=== PATIENT | female | born 1970 | race Caucasian/White ===

== ENCOUNTER 2016-11-06 01:33 | Emergency (ER) | payer OTHER ==
[~2016-11-06] VITALS: Ht 167.6 cm; Wt 78.9 kg
[~2016-11-06 01:33] MED LIST: AUGMENTIN 875-1 EACH PO; AZITHROMYCIN250 M1 PO; AZITHROMYCIN500 M3 PO; BENAZEPRIL HCL20 MG PO; CITALOPRAM HBR40 MG PO; DULOXETINE HCL60 MG PO; GABAPENTIN100 M2 PO
[2016-11-06 01:49] VITALS: BP 183/80
--- NOTE | 2016-11-06 01:54 | ED NECK/BACK PAIN COMPLAINT ---
History of Present Illness General Chief Complaint: Low Back Pain/Injury Stated Complaint: " I'VE HAD BACK SPASMS ALL WEEKEND" Source: patient Exam Limitations: no limitations Vital Signs & Intake/Output Vital Signs & Intake/Output Vital Signs Date Time Temp Pulse Resp B/P Pulse O2 O2 Flow FiO2 Ox Delivery Rate 11/06 0149 98.1 72 18 183/80 100 Room Air Allergies Coded Allergies: No Known Allergies (11/06/16) Reconcile Medications Amoxicillin/Potassium Clav (Augmentin 875-125 Tablet) 1 EACH TABLET 1 TAB PO BID pneumonia Azithromycin 250 MG TABLET 1 DP PO AD FOR POSSIBLE PNEUMONIA/BRONCHI Benazepril HCl 20 MG TABLET 1 TAB PO DAILY HEART (Reported) Citalopram Hydrobromide (Citalopram HBr) 40 MG TABLET 1 TAB PO DAILY DEPRESSION (Reported) Cyclobenzaprine HCl 10 MG TABLET 1 TAB PO 4 TIMES/DAY PRN MUSCLE SPASM Duloxetine HCl 60 MG CAPSULE.DR 1 CAP PO DAILY DEPRESSION (Reported) Gabapentin 100 MG CAPSULE 1 CAP PO DAILY DEPRESSION (Reported) Hydrocortisone 2.5 % OINT...G. 1 RANJEET TOP TID PRN RASH apply to affected area(s) X 7 DAYS MAX Ibuprofen 800 MG TABLET 1 TAB PO TID PRN PAIN Triage Note: TRIAGE: PATIENT TO ER FROM HOME REPORTING BACK SPASMS FEW WEEKS, INCREASED OVER WEEKEND. PATIENT HAS BEEN TAKING ALEEVE W/O RELIEF, APPLIED OTC PATCH TO R FLANK AND REPORTS "BROKE OUT IN RASH FROM IT." PATIENT DENIES URINARY DIFFICULTIES. DENIES ANY KNOWN BACK INJURIES. Triage Nurses Notes Reviewed? yes Onset: Gradual Duration: day(s): Timing: recent history Quality/Severity: moderate Location: lumbar spine Radiation: none Context: turning/bending Method of Injury: unknown Loss of Consciousness: no loss of consciousness Associated Symptoms: muscle spasm HPI: 46 yo woman in prior good health presents with 3 days of back pain. "The muscles feel tight." She notes that she saw her chiropractor 3 days ago, "and everything was great... and now I have pain in my left back." No nausea, vomiting, diarrhea, dysuria. She is otherwise well. Past History Travel History Traveled to [place] past 21 day No Medical History Any Pertinent Medical History? 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 No Review of Systems Review of Systems Constitutional: Reports: no symptoms. Eyes: Reports: no symptoms. Ears, Nose, Throat, Mouth: Reports: no symptoms. Respiratory: Reports: no symptoms. Cardiovascular: Reports: no symptoms. Gastrointestinal/Abdominal: Reports: no symptoms. Musculoskeletal: Reports: no symptoms. Skin: Reports: no symptoms. Neurological/Psychological: Reports: no symptoms. All Other Systems: Reviewed and Negative Physical Exam Physical Exam General Appearance: well developed/nourished, mild distress Head: atraumatic Eyes: Bilateral: PERRL, EOMI. Ears, Nose, Throat, Mouth: hearing grossly normal Neck: normal inspection, supple, full range of motion, normal alignment Respiratory: normal breath sounds Cardiovascular: regular rate/rhythm Gastrointestinal: soft, non-tender Back: normal inspection, muscle spasm, no vertebral tenderness, muscle spasm in left lower lumbar region. Neurologically intact. strength and light touch intact in lower extremities. Extremities: normal range of motion Neurologic/Psych: awake, alert, oriented x 3, normal mood/affect Skin: intact, normal color, warm/dry Progress Differential Diagnosis: herniated disc, myofascial strain, sciatica Plan of Care: toradol, flexeril... advocated close follow up. Departure Departure Disposition: HOME OR SELF CARE Condition: Stable Clinical Impression Primary Impression: Back pain Referrals: NING HTOMAS,BERNADETTE Loaiza (PCP/Family) Departure Forms: Customer Survey General Discharge Information Prescriptions: Current Visit Scripts Cyclobenzaprine HCl 1 TAB PO 4 TIMES/DAY PRN MUSCLE SPASM #30 TAB Ref 1 Ibuprofen 1 TAB PO TID PRN PAIN #60 TAB Hydrocortisone 1 RANJEET TOP TID PRN RASH #30 GM apply to affected area(s) X 7 DAYS MAX
[2016-11-06] MEDS ORDERED: CYCLOBENZAPRINE10 M1 PO (01:58)
[2016-11-06] MEDS ORDERED: IBUPROFEN800 M1 PO (01:58)
[2016-11-06] MEDS ORDERED: HYDROCORTISO453.6 GM TOP (01:59)
== END 2016-11-06 02:18 ==
LOC: ERH 01:33
DX: M54.5 Low back pain (principal)
CPT/HCPCS: 96372; J1885